=== PATIENT | male | born 1985 | race American Indian/Alaskan Native ===

== ENCOUNTER 2020-12-27 09:11 | Emergency (ER) | payer SELFPAY ==
[2020-12-27 09:15] VITALS: BP 149/96
== END 2020-12-27 10:32 ==
LOC: ED 09:11
DX: J02.9 Acute pharyngitis, unspecified (principal); Z53.21 Procedure and treatment not carried out due to patient leaving prior to being seen by health care provider

== ENCOUNTER 2021-05-06 16:00 | Observation (INO) | payer BC ==
[2021-05-06] MEDS ORDERED: dilTIAZem 25 MG/5 ML INJ ONE (16:24)
[2021-05-06] MEDS ORDERED: dilTIAZem 25 MG/5 ML INJ IV ONE ×3 (16:28→17:21)
--- NOTE | 2021-05-06 16:30 | Emergency Department Report ---
ED Palpitations HPI - General Chief Complaint: Arrhythmia/Palpitations Stated Complaint: TACHYCARDIA Time Seen by Provider: 05/06/21 16:18 Source: patient, EMS ( EMS documentation not available at time of chart dictation ), RN notes reviewed Mode of arrival: Stretcher Limitations: No Limitations - History of Present Illness Initial Comments: The patient was evaluated in the emergency department for symptoms described in the history of present illness. He/she was evaluated in the context of the global COVID-19 pandemic, which necessitated consideration that the patient might be at risk for infection with the virus that causes COVID-19. [facility] protocols and algorithms that pertain to the evaluation of patients at risk for COVID-19 are in a state of rapid change based on information released by regulatory bodies including the CDC and federal and state organizations. These policies and algorithms were followed during the patient's care in the emergency department. Please note that these policies, procedures and recommendations changed on a rapid basis. Patient is a 36-year-old gentleman. He is not known to myself previously. The patient reports that in 2017, while in the [facility], he was diagnosed with a "tachycardia." He does not know the specific rhythm. He does not have a local advertising dispatch clerk. He does not take prescription medications. He reports that in 2017, he sought emergent medical attention, for a fast heart rhythm. He reports that he was treated in a medical facility and released. He reports he was also evaluated for sleep apnea as an outpatient, and subsequently released. 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 He denies recreational drug use. He presents to the ER today with a complaint of tachycardia, via EMS. EMS attempted vagal maneuvers in the field. They were unsuccessful. The patient denies physical pain. Upon arrival to this emergency room, the patient was found to have a narrow complex tachycardia, that is variable. Heart rate is anywhere from 150-180. It is narrow complex, and there appear to be variably conducted atrial complexes, admits to QRS complexes. Patient medicated with 15 mg of diltiazem, which slowed the patient down. Heart rate anywhere from 10 5-1 25 after 15 mg of diltiazem. He received a subsequent 10 mg of diltiazem, heart rate 95 to 120 bpm. The patient states he feels improved at this time. He denies recreational drug use at this time. The patient also reports no travel, surgery, immobilization, DVT or pulmonary embolism risk factors. Patient states that he feels like he is back to his baseline. MD Complaint: rapid heart beat, "heart racing", palpitations, irregular heart beat -: Sudden Context: occured during rest Arrythmia History: other Associated Symptoms: denies other symptoms, other (Heart racing) Treatments Prior to Arrival: vagal maneuvers - Related Data Allergies Allergy/AdvReac Type Severity Reaction Status Date / Time No Known Allergies Allergy Unverified 12/27/20 09:13 ED Review of Systems ROS: Stated complaint: TACHYCARDIA Other details as noted in HPI Comment: All other systems reviewed and negative Cardiovascular: palpitations ED Past Medical Hx - Surgical History Additional Surgical History: appy ED Physical Exam - General Limitations: No Limitations General appearance: alert, obese - Head Head exam: Present: atraumatic, normocephalic - Eye Eye exam: Present: normal appearance, EOMI. Absent: nystagmus - ENT ENT exam: Present: normal exam, normal orophraynx, mucous membranes moist, normal external ear exam - Neck Neck exam: Present: normal inspection, full ROM. Absent: tenderness, meningismus - Respiratory Respiratory exam: Present: normal lung sounds bilaterally. Absent: respiratory distress, wheezes, stridor, decreased breath sounds - Cardiovascular Cardiovascular Exam: Present: tachycardia, irregular rhythm, normal heart sounds. Absent: systolic murmur, diastolic murmur, rubs, gallop - GI/Abdominal GI/Abdominal exam: Present: soft. Absent: distended, tenderness, guarding, rebo und, rigid, pulsatile mass - Rectal Rectal exam: Present: deferred - Extremities Exam Extremities exam: Present: normal inspection, full ROM, other (2+ pulses noted in the bilateral upper and lower extremities. There is no palpable cord. negative Homans sign. Muscular compartments are soft. The pelvis is stable.). Absent: pedal edema, calf tenderness - Back Exam Back exam: Present: normal inspection. Absent: tenderness, CVA tenderness (R), CVA tenderness (L), paraspinal tenderness, vertebral tenderness - Neurological Exam Neurological exam: Present: alert, oriented X3, other (No facial droop. Tongue midline. Extraocular movements intact bilaterally. Facial sensation intact to light touch in V1, V2, V3 distribution bilaterally. 5 and a 5 strength in 4 extremities. Sensation intact to light touch in 4 extremities.). Absent: motor sensory deficit - Psychiatric Psychiatric exam: Present: anxious - Skin Skin exam: Present: warm, dry, intact, normal color. Absent: rash ED Course Vital Signs 05/06/21 05/06/21 05/06/21 16:33 16:37 16:45 Temperature 99 F Pulse Rate 174 H 110 H Respiratory 16 Rate Blood Pressure 138/72 [Left] O2 Sat by Pulse 100 100 Oximetry 05/06/21 17:35 Temperature Pulse Rate 110 H Respiratory 16 Rate Blood Pressure 125/87 [Left] O2 Sat by Pulse 100 Oximetry ED Medical Decision Making - Lab Data Result diagrams: 05/06/21 16:34 05/06/21 16:34 Vital Signs 05/06/21 05/06/21 05/06/21 16:33 16:37 16:45 Temperature 99 F Pulse Rate 174 H 110 H Respiratory 16 Rate Blood Pressure 138/72 [Left] O2 Sat by Pulse 100 100 Oximetry Lab Results 05/06/21 05/06/21 Range/Units 16:34 16:34 WBC 8.1 (4.5-11.0) K/mm3 RBC 4.47 (3.65-5.03) M/mm3 Hgb 13.3 (11.8-15.2) gm/dl Hct 39.2 (35.5-45.6) % MCV 88 (84-94) fl MCH 30 (28-32) pg MCHC 34 (32-34) % RDW 13.0 L (13.2-15.2) % Plt Count 380 (140-440) K/mm3 Lymph % (Auto) 32.1 (13.4-35.0) % [place] % (Auto) 7.6 H (0.0-7.3) % Eos % (Auto) 1.2 (0.0-4.3) % Baso % (Auto) 0.9 (0.0-1.8) % Lymph # (Auto) 2.6 (1.2-5.4) K/mm3 [place] # (Auto) 0.6 (0.0-0.8) K/mm3 Eos # (Auto) 0.1 (0.0-0.4) K/mm3 Baso # (Auto) 0.1 (0.0-0.1) K/mm3 Seg Neutrophils % 58.2 (40.0-70.0) % Seg Neutrophils # 4.7 (1.8-7.7) K/mm3 Sodium 140 (137-145) mmol/L Potassium 4.1 (3.6-5.0) mmol/L Chloride 103.5 (98-107) mmol/L Carbon Dioxide 26 (22-30) mmol/L Anion Gap 15 mmol/L BUN 11 (9-20) mg/dL Creatinine 1.3 (0.8-1.3) mg/dL Estimated GFR > 60 ml/min BUN/Creatinine Ratio 8 % Glucose 141 H (75-100) mg/dL Calcium 8.5 (8.4-10.2) mg/dL Magnesium 1.90 (1.7-2.3) mg/dL Troponin T < 0.010 (0.00-0.029) ng/mL Vital Signs 05/06/21 05/06/21 05/06/21 16:33 16:37 16:45 Temperature 99 F Pulse Rate 174 H 110 H Respiratory 16 Rate Blood Pressure 138/72 [Left] O2 Sat by Pulse 100 100 Oximetry Lab Results 05/06/21 05/06/21 05/06/21 Range/Units 16:34 16:34 16:34 WBC 8.1 (4.5-11.0) K/mm3 RBC 4.47 (3.65-5.03) M/mm3 Hgb 13.3 (11.8-15.2) gm/dl Hct 39.2 (35.5-45.6) % MCV 88 (84-94) fl MCH 30 (28-32) pg MCHC 34 (32-34) % RDW 13.0 L (13.2-15.2) % Plt Count 380 (140-440) K/mm3 Lymph % (Auto) 32.1 (13.4-35.0) % [place] % (Auto) 7.6 H (0.0-7.3) % Eos % (Auto) 1.2 (0.0-4.3) % Baso % (Auto) 0.9 (0.0-1.8) % Lymph # (Auto) 2.6 (1.2-5.4) K/mm3 [place] # (Auto) 0.6 (0.0-0.8) K/mm3 Eos # (Auto) 0.1 (0.0-0.4) K/mm3 Baso # (Auto) 0.1 (0.0-0.1) K/mm3 Seg Neutrophils % 58.2 (40.0-70.0) % Seg Neutrophils # 4.7 (1.8-7.7) K/mm3 Sodium 140 (137-145) mmol/L Potassium 4.1 (3.6-5.0) mmol/L Chloride 103.5 (98-107) mmol/L Carbon Dioxide 26 (22-30) mmol/L Anion Gap 15 mmol/L BUN 11 (9-20) mg/dL Creatinine 1.3 (0.8-1.3) mg/dL Estimated GFR > 60 ml/min BUN/Creatinine Ratio 8 % Glucose 141 H (75-100) mg/dL Calcium 8.5 (8.4-10.2) mg/dL Magnesium 1.90 (1.7-2.3) mg/dL Troponin T < 0.010 (0.00-0.029) ng/mL TSH 1.080 (0.270-4.200) mlU/mL - EKG Data -: EKG Interpreted by Me Rate: tachycardia - EKG Data When compared to previous EKG there are: previous EKG unavailable 05/06/21 17:29 EKG #1 is interpreted at 16: 22 A. fib, rate 175 bpm, normal axis, QTC 4 5 6 ms, PVC, motion artifact, borderline high left ventricular voltage. Abnormal EKG. Not a STEMI. EKG #2, interpreted at 16: 28 Atrial fibrillation with ectopic atrial rhythm. Normal axis. QTC 4 5 4 ms. High left ventricular voltage. Abnormal EKG. Not a STEMI. EKG #3, interpreted at 17: 18 This is an ectopic atrial rhythm, with intermittent A. fib, QTC 4 3 7 ms. There is a normal axis. Not a STEMI. In 3 EKGs, the patient is found to have abnormal looking QRS in lead II, suspici ous for WPW. - Medical Decision Making Differential diagnosis, including but not limited to: A. fib with RVR, a flutter, WPW, thyroid derangement, electrolyte derangement Assessment and plan: 36-year-old gentleman presenting with a narrow complex irregular tachycardia, and suspicious looking QRS morphology in lead II, which makes me concerned for WPW. However, his QRS duration and the remainder of his leads appears to be unremarkable. The EKG is transmitted to our consulting advertising dispatch clerk, Dr. Onelia Ordonez advises that he believes the rhythm is atrial fibrillation. He further advises systemic anticoagulation, and advises that [facility] cardiology will follow in consultation. Patient still intermittently tachycardic, heart rate 105 to 125 bpm. The patient denies travel, surgery, DVT pulmonary embolism risk factors, he is low risk by Wells criteria, denies physical pain, he also denies contraindications to systemic anticoagulation. 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 Since he does not have an outpatient primary care doctor or advertising dispatch clerk or care established here in the [facility], and he presents with a narrow complex fast irregular tachycardia, he meets criteria for admission and hospitalization, stabilization, and urgent diagnostic work-up. He is agreeable to admission for the aforementioned reasons. Hospital physician, Dr. Lockett, to admit patient to the medical service. Discussed this with the patient. He articulated understanding. All questions answered. Critical Care Time: Yes Critical care time in (mins) excluding proc time.: 45 Critical care attestation.: If time is entered above; I have spent that time in minutes in the direct care of this critically ill patient, excluding procedure time. ED Disposition Clinical Impression: Narrow complex tachycardia Disposition: 09 ADMITTED INPATIENT Is pt being admited?: Yes Does the pt Need Aspirin: No Condition: Good
[2021-05-06 17:15] LABS: Basophils # (Auto) 0.1 K/mm3 (0.0-0.1); Basophils % (Auto) 0.9 % (0.0-1.8); Eosinophils # (Auto) 0.1 K/mm3 (0.0-0.4); Eosinophils % (Auto) 1.2 % (0.0-4.3); Hematocrit 39.2 % (35.5-45.6); Hemoglobin 13.3 gm/dl (11.8-15.2); Lymphocytes # (Auto) 2.6 K/mm3 (1.2-5.4); Lymphocytes % (Auto) 32.1 % (13.4-35.0); Mean Corpuscular HGB Conc 34 % (32-34); Mean Corpuscular Volume 88 fl (84-94); Monocytes # (Auto) 0.6 K/mm3 (0.0-0.8); Monocytes % (Auto) 7.6 % (0.0-7.3); Platelet Count 380 K/mm3 (140-440); Red Blood Count 4.47 M/mm3 (3.65-5.03)
[2021-05-06 17:17] LABS: BUN/Creatinine Ratio 8; Blood Urea Nitrogen 11 mg/dL (9-20); Calcium 8.5 mg/dL (8.4-10.2); Hemolysis Index 6
[2021-05-06] MEDS ORDERED: ENOXAPARIN 100 MG/1 ML INJ SUB-Q STA (17:21)
[2021-05-06] MEDS ORDERED: dilTIAZem 60 MG TAB PO ONE (17:21)
--- NOTE | 2021-05-06 17:22 | History and Physical Report ---
History of Present Illness Chief complaint: My heart is beating real fast History of present illness: 36 YO Male with Cardiac Arrythmia NOS presents to ED for evaluation. Patient reports "my heart is beating very fast". Patient states that he experienced a sudden onset of rapid heart rate today while resting. EMS was notified and upon arrival the patient was found to be in distress with a heart rate in the 180s. The patient was treated with medical cardioversion with mild improvement in symptoms and subsequently transported to [facility] for further care and evaluation of the aforementioned symptoms. The patient was seen and evaluated in the emergency department. All lab and imaging studies reviewed. The patient was found to have atrial fibrillation/atrial flutter with rapid ventricular response. Patient treated with medical cardioversion with normalization of heart rate. Cardiology team consulted. Patient placed in observation status and admitted to medical floor. Patient denies fever, chills, chest pain, palpitation, productive cough, skin rash, recent ill contacts, known ill contacts, known exposure to COVID-19. No prior admission for review. No medication listed at time of admission for reconciliation. Past History Past Medical History: other (See HPI) Past Surgical History: appendectomy Social history: single. denies: smoking, alcohol abuse, prescription drug abuse Family history: hypertension Medications and Allergies Allergies Allergy/AdvReac Type Severity Reaction Status Date / Time No Known Allergies Allergy Unverified 12/27/20 09:13 Review of Systems Constitutional: no weight loss, no fever, no chills, no night sweats Ears, nose, mouth and throat: no ear pain, no ear discharge, no tinnitis, no nose pain, no nasal discharge Cardiovascular: palpitations, no chest pain, no orthopnea, no lightheadedness, no dyspnea on exertion, no paroxysmal nocturnal dyspnea, no phlebitis Respiratory: no cough, no excessive sputum Gastrointestinal: no abdominal pain, no vomiting, no diarrhea, no constipation, no change in bowel habits Genitourinary Male: no dysuria, no hematuria, no discharge, no urinary frequency, no nocturia Rectal: no pain, no incontinence, no bleeding Musculoskeletal: no neck stiffness, no neck pain, no arm numbness/tingling, no low back pain, no shooting leg pain, no leg numbness/tingling Integumentary: no rash, no pruritis, no sores, no jaundice, no boils Neurological: no head injury, no transient paralysis, no weakness, no numbness, no tingling, no seizures, no tremors, no lack of coordination Psychiatric: no anxiety, no memory loss, no insomnia, no change in appetite, no change in libido, no disorientation, no hallucinations, no paranoia, no depression, no hopelessness, no anxiety attacks Endocrine: no cold intolerance, no excessive thirst, no flushing, no weight ch seema Hematologic/Lymphatic: no easy bruising Allergic/Immunologic: no urticaria, no wheezing Exam - Constitutional Vitals: Temp Pulse Resp BP Pulse Ox 99 F 110 H 16 138/72 100 05/06/21 16:33 05/06/21 16:45 05/06/21 16:33 05/06/21 16:33 05/06/21 16:37 General appearance: Present: mild distress - EENT Eyes: Present: PERRL ENT: hearing intact, clear oral mucosa - Neck Neck: Present: supple, normal ROM - Respiratory Respiratory effort: normal Respiratory: bilateral: CTA - Cardiovascular Heart Sounds: Present: S1 & S2. Absent: rub, click - Extremities Extremities: pulses symmetrical, No edema Peripheral Pulses: within normal limits - Abdominal General gastrointestinal: Present: soft, non-tender, non-distended, normal bowel sounds Male genitourinary: Present: normal - Integumentary Integumentary: Present: clear, warm, dry - Musculoskeletal Musculoskeletal: gait normal, strength equal bilaterally - Psychiatric Psychiatric: appropriate mood/affect, intact judgment & insight - Neurologic Neurologic: CNII-XII intact, moves all extremities HEART Score - HEART Score Troponin: Troponin T < 0.010 ng/mL (0.00-0.029) 05/06/21 16:34 Results - Labs CBC & Chem 7: 05/06/21 16:34 05/06/21 16:34 Labs: Abnormal lab results 05/06/21 05/06/21 Range/Units 16:34 16:34 RDW 13.0 L (13.2-15.2) % [place] % (Auto) 7.6 H (0.0-7.3) % Glucose 141 H (75-100) mg/dL Assessment and Plan - Patient Problems (1) Atrial fibrillation with rapid ventricular response Current Visit: Yes Status: Acute Plan to address problem: Patient mated to telemetry, cardiology team consulted, serial EKG, medical cardioversion with Cardizem, thyroid panel, magnesium level, therapeutic anticoagulation with Lovenox x1 dose. Further care as per cardiology team. Supportive care. (2) DVT prophylaxis Current Visit: Yes Status: Acute Plan to address problem: SCD to bilateral lower extremities while in bed, patient is ambulatory
[2021-05-06] MEDS ORDERED: ACETAMINOPHEN 325 MG TAB PO PRN (17:24)
[2021-05-06] MEDS ORDERED: HYDROmorphone 1 MG/1 ML INJ IV PRN (17:24)
[2021-05-06] MEDS ORDERED: oxyCODONE /ACETAMINOPHEN 5-325MG TAB PO PRN (17:24)
[2021-05-06] MEDS ORDERED: ONDANSETRON 4 MG/2 ML INJ IV PRN (17:24)
[2021-05-06] MEDS ORDERED: ALBUTEROL 2.5 MG/3 ML NEBU IH PRN (17:24)
[2021-05-06 17:49] LABS: INR 0.9 (0.87-1.13); Partial Thromboplastin Time 28.1 Sec. (24.2-36.6)
[2021-05-07 05:38] LABS: BUN/Creatinine Ratio 8; Blood Urea Nitrogen 10 mg/dL (9-20); Calcium 8.7 mg/dL (8.4-10.2); Hemolysis Index 3
--- NOTE | 2021-05-07 10:37 | Electrocardiograph Report ---
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
--- NOTE | 2021-05-07 10:38 | Electrocardiograph Report ---
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 FIB. WITH RVR. PVCs NSTW'S Paired ventricular premature complexes Compared to ECG 05/06/2021 16:22:04 Atrial fibrillation no longer present Electronically Signed On 05-07-2021 10:38:18 EDT by Otilio Lee
--- NOTE | 2021-05-07 10:58 | Progress Note ---
Assessment and Plan Assessment and plan: 36-year-old male who was admitted with diagnosis of A. fib with RVR. Patient reports 2 prior episodes with the first occurring in 2017 where he was hospitalized in [place] and work-up was found to be negative. Second episode was 2 weeks ago but had abated by the time of EMS arrival and patient was not admitted. A. fib with RVR. 05/07/2021. Patient is TSH and troponins found to be within normal limits. Patient currently with normal sinus rhythm and rate controlled. Patient was started on Cardizem and Lovenox in the emergency department. Await cardiology recommendations with regards to rate control medications and anticoagulation. Continue telemetry monitoring. History Interval history: No new issues overnight Hospitalist Physical - Constitutional Vitals: Temp Pulse Resp BP Pulse Ox 99 F 96 H 14 137/89 100 05/06/21 16:33 05/07/21 08:16 05/07/21 08:16 05/07/21 08:16 05/07/21 08:16 General appearance: Present: mild distress - EENT Eyes: Present: PERRL, EOM intact ENT: hearing intact, clear oral mucosa, dentition normal - Neck Neck: Present: supple, normal ROM - Respiratory Respiratory effort: normal Respiratory: bilateral: CTA - Cardiovascular Rhythm: regular Heart Sounds: Present: S1 & S2. Absent: gallop, rub - Extremities Extremities: no ischemia, No edema, Full ROM - Abdominal General gastrointestinal: soft, non-tender, non-distended, normal bowel sounds - Integumentary Integumentary: Present: clear, warm, dry - Neurologic Neurologic: CNII-XII intact, moves all extremities HEART Score - HEART Score Troponin: Troponin T < 0.010 ng/mL (0.00-0.029) 05/06/21 16:34 Results - Labs CBC & Chem 7: 05/06/21 16:34 05/07/21 04:39 Labs: Laboratory Last Values WBC 8.1 K/mm3 (4.5-11.0) 05/06/21 16:34 RBC 4.47 M/mm3 (3.65-5.03) 05/06/21 16:34 Hgb 13.3 gm/dl (11.8-15.2) 05/06/21 16:34 Hct 39.2 % (35.5-45.6) 05/06/21 16:34 MCV 88 fl (84-94) 05/06/21 16:34 MCH 30 pg (28-32) 05/06/21 16:34 MCHC 34 % (32-34) 05/06/21 16:34 RDW 13.0 % (13.2-15.2) L 05/06/21 16:34 Plt Count 380 K/mm3 (140-440) 05/06/21 16:34 Lymph % (Auto) 32.1 % (13.4-35.0) 05/06/21 16:34 [place] % (Auto) 7.6 % (0.0-7.3) H 05/06/21 16:34 Eos % (Auto) 1.2 % (0.0-4.3) 05/06/21 16:34 Baso % (Auto) 0.9 % (0.0-1.8) 05/06/21 16:34 Lymph # (Auto) 2.6 K/mm3 (1.2-5.4) 05/06/21 16:34 [place] # (Auto) 0.6 K/mm3 (0.0-0.8) 05/06/21 16:34 Eos # (Auto) 0.1 K/mm3 (0.0-0.4) 05/06/21 16:34 Baso # (Auto) 0.1 K/mm3 (0.0-0.1) 05/06/21 16:34 Seg Neutrophils % 58.2 % (40.0-70.0) 05/06/21 16:34 Seg Neutrophils # 4.7 K/mm3 (1.8-7.7) 05/06/21 16:34 PT 12.8 Sec. (12.2-14.9) 05/06/21 16:34 INR 0.90 (0.87-1.13) 05/06/21 16:34 APTT 28.1 Sec. (24.2-36.6) 05/06/21 16:34 Sodium 139 mmol/L (137-145) 05/07/21 04:39 Potassium 4.0 mmol/L (3.6-5.0) 05/07/21 04:39 Chloride 103.8 mmol/L (98-107) 05/07/21 04:39 Carbon Dioxide 27 mmol/L (22-30) 05/07/21 04:39 Anion Gap 12 mmol/L 05/07/21 04:39 BUN 10 mg/dL (9-20) 05/07/21 04:39 Creatinine 1.2 mg/dL (0.8-1.3) 05/07/21 04:39 Estimated GFR > 60 ml/min 05/07/21 04:39 BUN/Creatinine Ratio 8 % 05/07/21 04:39 Glucose 127 mg/dL (75-100) H 05/07/21 04:39 Calcium 8.7 mg/dL (8.4-10.2) 05/07/21 04:39 Magnesium 1.90 mg/dL (1.7-2.3) 05/06/21 16:34 Troponin T < 0.010 ng/mL (0.00-0.029) 05/06/21 16:34 TSH 1.080 mlU/mL (0.270-4.200) 05/06/21 16:34 Active Medications - Current Medications Current Medications: Generic Name Dose Route Start Last Admin Trade Name Freq PRN Reason Stop Dose Admin Acetaminophen 650 mg 05/06/21 17:24 Acetaminophen 325 Mg Tab PO Q4H PRN Pain MILD(1-3)/Fever >100.5/WAYNE Albuterol 2.5 mg 05/06/21 17:24 Albuterol 2.5 Mg/3 Ml Nebu IH Q4HRT PRN Shortness Of Breath Hydromorphone HCl 0.5 mg 05/06/21 17:24 Hydromorphone 1 Mg/1 Ml Inj IV Q23H PRN Pain , Severe (7-10) Ondansetron HCl 4 mg 05/06/21 17:24 Ondansetron 4 Mg/2 Ml Inj IV Q8H PRN Nausea And Vomiting Oxycodone/Acetaminophen 1 tab 05/06/21 17:24 Oxycodone /Acetaminophen 5-325mg Tab PO Q16H PRN Pain, Moderate (4-6) Sodium Chloride 10 ml 05/06/21 22:00 05/06/21 21:48 Sodium Chloride 0.9% 10 Ml Flush Syringe IV 10 ml BID RUSSELL Administration Sodium Chloride 10 ml 05/06/21 17:24 Sodium Chloride 0.9% 10 Ml Flush Syringe IV PRN PRN LINE FLUSH
[2021-05-07 11:13] LABS: Bilirubin,Urine NEG (Negative); Blood,Urine NEG (Negative); Color,Urine Yellow (Yellow); Mucus,Urine FEW /HPF; Protein,Urine <15 mg/dL mg/dL (Negative); WBC,Urine < 1.0 /HPF (0.0-6.0)
[2021-05-07 11:21] LABS: Amphetamine Screen,Urine Negative; Benzodiazepines Screen,Urine Negative; Cannabinoid Screen,Urine Negative; Cocaine Screen,Urine Negative; Methadone Screen,Urine Negative; Opiate Screen,Urine Negative
[2021-05-07] MEDS: METOPROLOL SUCCINATE XL 25 MG TAB PO SCH (13:58)
--- NOTE | 2021-05-07 14:11 | Consultation ---
History of Present Illness Consult date: 05/07/21 Requesting physician: ARIEL STRATTON Consult reason: tachycardia History of present illness: Patient is a 36 y/o male with a PMHx of a cardiac arrhythmia(unknown) who presented to the ED with a complaint of palpations and rapid heart rate. He reports that while working yesterday his heart rate suddenly increased and he had palpitations. He states that his rate was over 200 and associated it with SOB and lightheadedness. He notified EMS who confirmed his HR was in the 180s. The patient was then transferred to [facility], found to be in Afib, and treated with diltiazem. He converted to sinus rhythm. The patient reports 2 prior episodes with the first occurring in 2017 where he was hospitalized in [place] and work-up was found to be negative. Second episode was 2 weeks ago but had subsided by the time of EMS arrived. Patient is previously unknown to our practice. Cardiology is consulted for the narrow complex tachycardia. Past History Past Medical History: arrhythmia, other Past Surgical History: appendectomy Social history: single. denies: smoking, alcohol abuse, prescription drug abuse Family history: hypertension Medications and Allergies Allergies Allergy/AdvReac Type Severity Reaction Status Date / Time No Known Allergies Allergy Verified 05/07/21 08:20 Home Medications Medication Instructions Recorded Confirmed Last Taken Type No Known Home Medications [No 05/07/21 05/07/21 Unknown History Reported Home Medications] Active Meds: Active Medications Acetaminophen (Acetaminophen 325 Mg Tab) 650 mg PO Q4H PRN PRN Reason: Pain MILD(1-3)/Fever >100.5/WAYNE Albuterol (Albuterol 2.5 Mg/3 Ml Nebu) 2.5 mg IH Q4HRT PRN PRN Reason: Shortness Of Breath Hydromorphone HCl (Hydromorphone 1 Mg/1 Ml Inj) 0.5 mg IV Q23H PRN PRN Reason: Pain , Severe (7-10) Metoprolol Succinate (Metoprolol Succinate Xl 25 Mg Tab) 25 mg PO QDAY RUSSELL Last Admin: 05/07/21 13:58 Dose: 25 mg Documented by: Ondansetron HCl (Ondansetron 4 Mg/2 Ml Inj) 4 mg IV Q8H PRN PRN Reason: Nausea And Vomiting Oxycodone/Acetaminophen (Oxycodone /Acetaminophen 5-325mg Tab) 1 tab PO Q16H PRN PRN Reason: Pain, Moderate (4-6) Sodium Chloride (Sodium Chloride 0.9% 10 Ml Flush Syringe) 10 ml IV BID RUSSELL Last Admin: 05/07/21 11:20 Dose: Not Given Documented by: Sodium Chloride (Sodium Chloride 0.9% 10 Ml Flush Syringe) 10 ml IV PRN PRN PRN Reason: LINE FLUSH Review of Systems All systems: negative Constitutional: no weight loss, no weight gain, no fever, no chills Ears, nose, mouth and throat: no tinnitis, no nose pain, no nasal congestion Cardiovascular: palpitations, rapid/irregular heart beat, lightheadedness, shortness of breath, no chest pain, no orthopnea, no edema, no syncope Respiratory: shortness of breath, no cough, no cough with sputum, no excessive sputum, no hemoptysis Gastrointestinal: no abdominal pain, no nausea, no vomiting Musculoskeletal: no neck stiffness, no neck pain, no shooting arm pain Integumentary: no rash, no pruritis, no redness Neurological: no head injury, no transient paralysis, no paralysis Psychiatric: no anxiety, no memory loss Endocrine: no cold intolerance, no heat intolerance Hematologic/Lymphatic: no easy bruising, no easy bleeding Physical Examination Last Vital Signs Temp 99 F 05/06/21 16:33 Pulse 98 H 05/07/21 13:58 Resp 14 05/07/21 08:16 BP 137/89 05/07/21 08:16 Pulse Ox 100 05/07/21 08:16 General appearance: no acute distress HEENT: Positive: PERRL Cardiac: Positive: Reg Rate and Rhythm Lungs: Positive: Normal Breath Sounds Neuro: Positive: Grossly Intact Abdomen: Positive: Soft, Active Bowel Sounds Skin: Negative: Rash, Suspicious Lesions, Ulceration Extremities: Present: upper extr. pulses, lower extr. pulses. Absent: edema Results 05/06/21 16:34 05/07/21 04:39 Coagulation 05/06/21 Range/Units 16:34 PT 12.8 (12.2-14.9) Sec. INR 0.90 (0.87-1.13) APTT 28.1 (24.2-36.6) Sec. CBC 05/06/21 Range/Units 16:34 WBC 8.1 (4.5-11.0) K/mm3 RBC 4.47 (3.65-5.03) M/mm3 Hgb 13.3 (11.8-15.2) gm/dl Hct 39.2 (35.5-45.6) % Plt Count 380 (140-440) K/mm3 Lymph # (Auto) 2.6 (1.2-5.4) K/mm3 [place] # (Auto) 0.6 (0.0-0.8) K/mm3 Eos # (Auto) 0.1 (0.0-0.4) K/mm3 Baso # (Auto) 0.1 (0.0-0.1) K/mm3 Comprehensive Metabolic Panel 05/06/21 05/07/21 Range/Units 16:34 04:39 Sodium 140 139 (137-145) mmol/L Potassium 4.1 4.0 (3.6-5.0) mmol/L Chloride 103.5 103.8 (98-107) mmol/L Carbon Dioxide 26 27 (22-30) mmol/L BUN 11 10 (9-20) mg/dL Creatinine 1.3 1.2 (0.8-1.3) mg/dL Glucose 141 H 127 H (75-100) mg/dL Calcium 8.5 8.7 (8.4-10.2) mg/dL - Imaging and Cardiology Echo: pending EKG: report reviewed, image reviewed EKG interpretations - Telemetry EKG Rhythm: Sinus Rhythm - EKG Supraventricular dysrhythmia: atrial fibrillation Assessment and Plan Patient is a 36 y/o male with a PMHx of a cardiac arrhythmia(unknown) who presented to the ED with a complaint of palpations and rapid heart rate. Afib w/ RVR * EKG from EMS shows afib w/ RVR rate 181. No acute ishcemic changes. * Repeat EKG shows sinus tachycardia 112 with no acite ischemic changes. Trops negative x1 * TSH and MG+ within normal limits Plan: Echo pending. Treadmill stress test in AM. NPO after midnight. Initiate metorporlol XL 25mg PO QD for rate control No indication for anticoagulation at this time Patient seen in conjunction with Dr. York who agrees with this plan of care. Will continue to follow - Patient Problems (1) Narrow complex tachycardia Current Visit: Yes Status: Acute (2) Atrial fibrillation with rapid ventricular response Current Visit: Yes Status: Acute (3) DVT prophylaxis Current Visit: Yes Status: Acute
[2021-05-08] MEDS: METOPROLOL SUCCINATE XL 25 MG TAB PO SCH (10:00)
[2021-05-08] MEDS ORDERED: METOPROLOL SUCCINATE XL 25 MG TAB PO SCH (10:01)
--- NOTE | 2021-05-08 10:04 | Progress Note ---
Assessment and Plan 36-year-old male with obesity episode of atrial fibrillation with palpitations lasting less than 6 hours patient was converted back to sinus rhythm with IV Cardizem. Patient has been on Toprol patient is maintained sinus rhythm. Patient stress test revealed good exercise capacity 12 minutes 30 seconds of Aki protocol with no inducible arrhythmia no A. fib with activity. LV function on echocardiogram was normal without significant regurgitation. Patient's Eagle vas score is 0 continue low-dose aspirin and Toprol-XL 50 mg patient may be discharged from a cardiovascular point of view and follow-up in the office in the next 2 to 4 weeks. 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 - Patient Problems (1) Palpitations Current Visit: Yes Status: Acute (2) Atrial fibrillation with rapid ventricular response Current Visit: Yes Status: Acute Subjective Date of service: 05/08/21 Principal diagnosis: no palpations Interval history: feeling no palpations Objective Vital Signs Temp Pulse Resp BP BP Pulse Ox 05/08/21 04:48 98.2 F 88 18 123/80 98 05/08/21 02:17 98 05/08/21 01:50 99 05/08/21 01:31 86 16 121/77 05/08/21 01:21 86 11 L 121/77 05/08/21 01:11 87 13 121/77 05/08/21 01:01 87 11 L 121/77 05/08/21 00:51 96 H 27 H 121/77 05/08/21 00:41 83 23 121/77 05/08/21 00:31 90 18 121/77 05/08/21 00:21 80 16 121/77 05/08/21 00:01 81 17 121/77 05/07/21 13:58 98 H 05/07/21 11:30 98.1 F 98 H 16 120/86 100 - Physical Examination General: Appears Well, No Apparent Distress HEENT: Positive: PERRL Neck: Positive: neck supple, trachea midline Cardiac: Positive: Reg Rate and Rhythm Lungs: Positive: Normal Exam Neuro: Positive: Grossly Intact Abdomen: Positive: Soft, Active Bowel Sounds /Rectal: Normal Prostate, No Masses Skin: Negative: Rash, Suspicious Lesions, Ulceration Musculoskeletal: No Fluid Collection, No Pain, Normal Range of Motion Gait: Normal Gait Extremities: Present: upper extr. pulses, lower extr. pulses. Absent: edema - Imaging and Cardiology EKG: report reviewed, image reviewed Exercise stress test: report reviewed (negative treadmill stress ekg 12:30 minutes aki protocol no arrthymia noted) Echo: report reviewed (normal lv function normal left atrium no signficant reguriatations ) - Telemetry EKG Rhythm: Sinus Rhythm
--- NOTE | 2021-05-08 10:09 | Progress Note ---
Assessment and Plan Assessment and plan: 36-year-old male who was admitted with diagnosis of A. fib with RVR. Patient reports 2 prior episodes with the first occurring in 2017 where he was hospitalized in [place] and work-up was found to be negative. Second episode was 2 weeks ago but had abated by the time of EMS arrival and patient was not admitted. A. fib with RVR. 05/07/2021. Patient is TSH and troponins found to be within normal limits. Patient currently with normal sinus rhythm and rate controlled. Patient was started on Cardizem and Lovenox in the emergency department. Await cardiology recommendations with regards to rate control medications and anticoagulation. Continue telemetry monitoring. 05/08/2021. Patient stress test revealed good exercise capacity 12 minutes 30 seconds of Braxton protocol with no inducible arrhythmia no A. fib with activity. LV function on echocardiogram was normal without significant regurgitation. Patient's Eagle vas score is 0 continue low-dose aspirin and Toprol-XL 50 mg Cardiology reports patient may be discharged from a cardiovascular point of view and follow-up in the office in the next 2 to 4 weeks. 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 Absent: gallop, rub - Extremities Extremities: no ischemia, No edema, Full ROM - Abdominal General gastrointestinal: soft, non-tender, non-distended, normal bowel sounds - Integumentary Integumentary: Present: clear, warm, dry - Neurologic Neurologic: CNII-XII intact, moves all extremities HEART Score - HEART Score Troponin: Troponin T < 0.010 ng/mL (0.00-0.029) 05/06/21 16:34 Results - Labs CBC & Chem 7: 05/06/21 16:34 05/07/21 04:39 Labs: Laboratory Last Values WBC 8.1 K/mm3 (4.5-11.0) 05/06/21 16:34 RBC 4.47 M/mm3 (3.65-5.03) 05/06/21 16:34 Hgb 13.3 gm/dl (11.8-15.2) 05/06/21 16:34 Hct 39.2 % (35.5-45.6) 05/06/21 16:34 MCV 88 fl (84-94) 05/06/21 16:34 MCH 30 pg (28-32) 05/06/21 16:34 MCHC 34 % (32-34) 05/06/21 16:34 RDW 13.0 % (13.2-15.2) L 05/06/21 16:34 Plt Count 380 K/mm3 (140-440) 05/06/21 16:34 Lymph % (Auto) 32.1 % (13.4-35.0) 05/06/21 16:34 [place] % (Auto) 7.6 % (0.0-7.3) H 05/06/21 16:34 Eos % (Auto) 1.2 % (0.0-4.3) 05/06/21 16:34 Baso % (Auto) 0.9 % (0.0-1.8) 05/06/21 16:34 Lymph # (Auto) 2.6 K/mm3 (1.2-5.4) 05/06/21 16:34 [place] # (Auto) 0.6 K/mm3 (0.0-0.8) 05/06/21 16:34 Eos # (Auto) 0.1 K/mm3 (0.0-0.4) 05/06/21 16:34 Baso # (Auto) 0.1 K/mm3 (0.0-0.1) 05/06/21 16:34 Seg Neutrophils % 58.2 % (40.0-70.0) 05/06/21 16:34 Seg Neutrophils # 4.7 K/mm3 (1.8-7.7) 05/06/21 16:34 PT 12.8 Sec. (12.2-14.9) 05/06/21 16:34 INR 0.90 (0.87-1.13) 05/06/21 16:34 APTT 28.1 Sec. (24.2-36.6) 05/06/21 16:34 Sodium 139 mmol/L (137-145) 05/07/21 04:39 Potassium 4.0 mmol/L (3.6-5.0) 05/07/21 04:39 Chloride 103.8 mmol/L (98-107) 05/07/21 04:39 Carbon Dioxide 27 mmol/L (22-30) 05/07/21 04:39 Anion Gap 12 mmol/L 05/07/21 04:39 BUN 10 mg/dL (9-20) 05/07/21 04:39 Creatinine 1.2 mg/dL (0.8-1.3) 05/07/21 04:39 Estimated GFR > 60 ml/min 05/07/21 04:39 BUN/Creatinine Ratio 8 % 05/07/21 04:39 Glucose 127 mg/dL (75-100) H 05/07/21 04:39 Calcium 8.7 mg/dL (8.4-10.2) 05/07/21 04:39 Magnesium 1.90 mg/dL (1.7-2.3) 05/06/21 16:34 Troponin T < 0.010 ng/mL (0.00-0.029) 05/06/21 16:34 TSH 1.080 mlU/mL (0.270-4.200) 05/06/21 16:34 Urine Color Yellow (Yellow) 05/07/21 Unknown Urine Turbidity Clear (Clear) 05/07/21 Unknown Urine pH 6.0 (5.0-7.0) 05/07/21 Unknown Ur Specific [place] 1.021 (1.003-1.030) 05/07/21 Unknown Urine Protein <15 mg/dl mg/dL (Negative) 05/07/21 Unknown Urine Glucose (UA) Neg mg/dL (Negative) 05/07/21 Unknown Urine Ketones Neg mg/dL (Negative) 05/07/21 Unknown Urine Blood Neg (Negative) 05/07/21 Unknown Urine Nitrite Neg (Negative) 05/07/21 Unknown Urine Bilirubin Neg (Negative) 05/07/21 Unknown Urine Urobilinogen 2.0 mg/dL (<2.0) 05/07/21 Unknown Ur Leukocyte Esterase Neg (Negative) 05/07/21 Unknown Urine WBC (Auto) < 1.0 /HPF (0.0-6.0) 05/07/21 Unknown Urine RBC (Auto) 1.0 /HPF (0.0-6.0) 05/07/21 Unknown U Epithel Cells (Auto) 1.0 /HPF (0-13.0) 05/07/21 Unknown Urine Mucus Few /HPF 05/07/21 Unknown Urine Opiates Screen Negative 05/07/21 Unknown Urine Methadone Screen Negative 05/07/21 Unknown Ur Barbiturates Screen Negative 05/07/21 Unknown Ur Phencyclidine Scrn Negative 05/07/21 Unknown Ur Amphetamines Screen Negative 05/07/21 Unknown U Benzodiazepines Scrn Negative 05/07/21 Unknown Urine Cocaine Screen Negative 05/07/21 Unknown U Marijuana (THC) Screen Negative 05/07/21 Unknown Drugs of Abuse Note Disclamer 05/07/21 Unknown [place]/IV: Voiding Method Toilet Active Medications - Current Medications Current Medications: Generic Name Dose Route Start Last Admin Trade Name Freq PRN Reason Stop Dose Admin Acetaminophen 650 mg 05/06/21 17:24 Acetaminophen 325 Mg Tab PO Q4H PRN Pain MILD(1-3)/Fever >100.5/WAYNE Albuterol 2.5 mg 05/06/21 17:24 Albuterol 2.5 Mg/3 Ml Nebu IH Q4HRT PRN Shortness Of Breath Hydromorphone HCl 0.5 mg 05/06/21 17:24 Hydromorphone 1 Mg/1 Ml Inj IV Q23H PRN Pain , Severe (7-10) Metoprolol Succinate 50 mg 05/08/21 10:01 Metoprolol Succinate Xl 25 Mg Tab PO QDAY RUSSELL Ondansetron HCl 4 mg 05/06/21 17:24 Ondansetron 4 Mg/2 Ml Inj IV Q8H PRN Nausea And Vomiting Oxycodone/Acetaminophen 1 tab 05/06/21 17:24 Oxycodone /Acetaminophen 5-325mg Tab PO Q16H PRN Pain, Moderate (4-6) Sodium Chloride 10 ml 05/06/21 22:00 05/08/21 07:56 Sodium Chloride 0.9% 10 Ml Flush Syringe IV Not Given BID RUSSELL Sodium Chloride 10 ml 05/06/21 17:24 Sodium Chloride 0.9% 10 Ml Flush Syringe IV PRN PRN LINE FLUSH
--- NOTE | 2021-05-08 10:14 | Discharge Summary ---
Providers - Providers Date of Admission: 05/06/21 17:24 Date of discharge: 05/08/21 Attending physician: JAZMINE VELASCO 05/06/21 17:27 Consult to Physician [CONS] Urgent Comment: Consulting Provider: LYNDSEY RUBIO Physician Instructions: Reason For Exam: Narrow complex tachycardia Primary care physician: IRB COMPLIANCE COORDINATOR Hospitalization Reason for admission: afib Condition: Good Hospital course: 36-year-old male who was admitted with diagnosis of A. fib with RVR. Patient reports 2 prior episodes with the first occurring in 2017 where he was hospitalized in [place] and work-up was found to be negative. Second episode was 2 weeks ago but had abated by the time of EMS arrival and patient was not admitted. Patient was noted to have tachycardia on this admission and was admitted with diagnosis of A. fib with RVR. Hospital course: 05/07/2021. Patient is TSH and troponins found to be within normal limits. Patient currently with normal sinus rhythm and rate controlled. Patient was started on Cardizem and Lovenox in the emergency department. Await cardiology recommendations with regards to rate control medications and anticoagulation. Continue telemetry monitoring. 05/08/2021. Patient stress test revealed good exercise capacity 12 minutes 30 seconds of Braxton protocol with no inducible arrhythmia no A. fib with activity. LV function on echocardiogram was normal without significant regurgitation. Patient's Eagle vas score is 0 continue low-dose aspirin and Toprol-XL 50 mg Card iology reports patient may be discharged from a cardiovascular point of view and follow-up in the office in the next 2 to 4 weeks. 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 fib with RVR Core Measure Documentation - Palliative Care Palliative Care/ Comfort Measures: Not Applicable - Core Measures Any of the following diagnoses?: none Exam - Constitutional Vitals: Temp Pulse Resp BP Pulse Ox 98.2 F 88 18 123/80 98 05/08/21 04:48 05/08/21 04:48 05/08/21 04:48 05/08/21 04:48 05/08/21 04:48 General appearance: Present: no acute distress, well-nourished - EENT Eyes: Present: PERRL ENT: hearing intact, clear oral mucosa - Neck Neck: Present: supple, normal ROM - Respiratory Respiratory effort: normal Respiratory: bilateral: CTA - Cardiovascular Heart Sounds: Present: S1 & S2. Absent: rub, click - Extremities Extremities: pulses symmetrical, No edema Peripheral Pulses: within normal limits - Abdominal General gastrointestinal: Present: soft, non-tender, non-distended, normal bowel sounds Male genitourinary: Present: normal - Integumentary Integumentary: Present: clear, warm, dry - Musculoskeletal Musculoskeletal: gait normal, strength equal bilaterally - Psychiatric Psychiatric: appropriate mood/affect, intact judgment & insight - Neurologic Neurologic: CNII-XII intact, moves all extremities Plan Activity: advance as tolerated Weight Bearing Status: Weight Bear as Tolerated Diet: regular Additional Instructions: Patient advised for reduce stimulants weight loss and good 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 Metoprolol Xl [Metoprolol SUCCINATE ER TAB] 50 mg PO QDAY #30 tablet
[2021-05-08] MEDS ORDERED: METOPROLOL SUCCINATE XL 50 MG TAB PO SCH (11:00)
--- NOTE | 2021-05-08 11:34 | Progress Note ---
Assessment and Plan Patient is a 36 y/o male with a PMHx of a cardiac arrhythmia(unknown) who presented to the ED with a complaint of palpations and rapid heart rate. Afib w/ RVR * EKG from EMS shows afib w/ RVR rate 181. No acute ishcemic changes. * Repeat EKG shows sinus tachycardia 112 with no acite ischemic changes. Trops negative x1 * TSH and MG+ within normal limits * Echo 05/08/2021-EF 50 to 55%, mild diastolic dysfunction is present impaired relaxation pattern right ventricular systolic function is normal, left and right atrium are normal in size, no aortic regurgitation, no tricuspid or pulmonic valve regurgitation * Exercise Stress test- negative for reproducible arrythmia Plan: Incrase to metorporlol XL 50mg PO QD for rate control. Patient cardiac status is stable and may be discharged from a cardiac standpoint No indication for anticoagulation at this time. Chads vasc score =0 Patient has a follow up appointment with Dr. York, [facility], on 06/24/2021 at at our 10:45am [place] location. Patient seen in conjunction with Dr. York who agrees with this plan of care. Will sign off - Patient Problems (1) Narrow complex tachycardia Current Visit: Yes Status: Acute (2) Atrial fibrillation with rapid ventricular response Current Visit: Yes Status: Acute (3) DVT prophylaxis Current Visit: Yes Status: Acute Subjective Date of service: 05/08/21 Principal diagnosis: no palpations Interval history: Patient for stress test and echo this am Sinus 90s on monitor Objective Vital Signs Temp Pulse Resp BP BP Pulse Ox 05/08/21 04:48 98.2 F 88 18 123/80 98 05/08/21 02:17 98 05/08/21 01:50 99 05/08/21 01:31 86 16 121/77 05/08/21 01:21 86 11 L 121/77 05/08/21 01:11 87 13 121/77 05/08/21 01:01 87 11 L 121/77 05/08/21 00:51 96 H 27 H 121/77 05/08/21 00:41 83 23 121/77 05/08/21 00:31 90 18 121/77 05/08/21 00:21 80 16 121/77 05/08/21 00:01 81 17 121/77 05/07/21 13:58 98 H 05/07/21 11:30 98.1 F 98 H 16 120/86 100 - Physical Examination General: Appears Well, No Apparent Distress HEENT: Positive: PERRL Neck: Positive: neck supple, trachea midline Cardiac: Positive: Reg Rate and Rhythm Lungs: Positive: Normal Breath Sounds Neuro: Positive: Grossly Intact Abdomen: Positive: Soft, Active Bowel Sounds /Rectal: Normal Prostate, No Masses Skin: Negative: Rash, Suspicious Lesions, Ulceration Musculoskeletal: No Fluid Collection, No Pain, Normal Range of Motion Gait: Normal Gait Extremities: Present: upper extr. pulses, lower extr. pulses. Absent: edema - Imaging and Cardiology EKG: report reviewed, image reviewed Echo: report reviewed (normal lv function normal left atrium no signficant reguriatations )
[2021-05-08 11:38] VITALS: BP 118/55
--- NOTE | 2021-05-08 12:23 | Treadmill Report ---
DATE OF SERVICE: 05/08/2021 TREADMILL STRESS TEST CLINICAL INFORMATION: A 36-year-old male with atrial fibrillation, on sinus rhythm here for a treadmill stress test for inducible arrhythmias. DESCRIPTION OF PROCEDURE: The patient exercised on Braxton protocol for 12 minutes 20 seconds. Resting blood pressure was 137/78. Resting heart rate 99. Max heart rate was 190. Max blood pressure was 160/96. The patient achieved 95% max predicted heart rate. Resting EKG, sinus rhythm with no ST abnormalities. The patient had no EKG changes or arrhythmias suggestive of ischemia. No atrial fibrillation induced with activity. SUMMARY: 1. Negative treadmill EKG. 2. Good exercise capacity, 12 minutes 20 seconds Braxton protocol. 3. There were no EKG changes or arrhythmias suggestive of ischemia. No atrial fibrillation noted. 4. No exaggerated blood pressure response to activity. TID: [id number] RECEIPT: [id number] SHARATH/BRISA
--- NOTE | 2021-05-16 09:43 | Treadmill Report ---
[facility] Test Date: 2021-05-08 Test Time: 07:48:22 Pat Name: YESENIA BROWER Department: Room: A485 1 Gender: M Sde: Angelina Porter : 1985 Requested By: ARIEL ANDREA Order Number: [id number] Reading MD: Dinora Butler Interpretive Statements See dictated report. Electronically Signed On 05-16-2021 9:43:18 EDT by Dinora Butler
== END 2021-05-08 15:56 | disposition home or self-care (01) ==
LOC: ED 16:00 → 4A 17:24
PROVIDERS: ADMIT Internal Medicine; ATTEND Hospitalist
DX: I48.20 Chronic atrial fibrillation, unspecified (principal); I47.1 Supraventricular tachycardia; I49.9 Cardiac arrhythmia, unspecified; G47.30 Sleep apnea, unspecified; Z90.49 Acquired absence of other specified parts of digestive tract; Z79.899 Other long term (current) drug therapy; Z98.890 Other specified postprocedural states
CPT/HCPCS: 36415; 80048; 80307; 81001; 83735; 84443; 84484; 85025; 85610; 85730; 93005; 93017; 93306; 96372; 96374; 96376; 99291; G0378; J1650